=== PATIENT | male | born 1955 | race Caucasian/White ===

== ENCOUNTER 2019-03-22 19:34 | Emergency (ER) | payer BC, SELFPAY ==
[2019-03-22 19:38] VITALS: BP 145/90; PULSE 77; RESP 18; TEMP 36.8; O2SAT 98; BMI 23.1
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
[2019-03-22] MEDS: KETOROLAC 60 MG/2 ML VIAL IM (20:15)
[2019-03-22] MEDS: TET,DIPH,PERTUSS(ACELL),VAC/PF 0.5 ML SYRINGE IM (20:15)
[2019-03-22 21:52] VITALS: BP 118/77; PULSE 83; RESP 16; O2SAT 98
[2019-03-22] MEDS: HYDROCODONE/ACET 5/325 PREPACK 1 BOTTLE MISC (21:55)
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
== END 2019-03-22 21:58 | disposition home or self-care (01) ==
PROVIDERS: Emergency Provider Nurse Practitioner Family
DX: S43.005A Unspecified dislocation of left shoulder joint, initial encounter (principal); S40.212A Abrasion of left shoulder, initial encounter; V19.3XXA Pedal cyclist (driver) (passenger) injured in unspecified nontraffic accident, initial encounter; Y93.55 Activity, bike riding; Z23 Encounter for immunization
CPT/HCPCS: 73030; 90471; 96372; 99283; 90715; J1885

== ENCOUNTER 2019-04-02 20:02 | Emergency (ER) | payer BC, SELFPAY ==
[2019-04-02 20:05] VITALS: BP 152/92; PULSE 72; RESP 18; TEMP 36.8; O2SAT 98
--- NOTE | 2019-04-02 20:09 | DI.RAD.S_ITS ---
PROCEDURE: XR CHEST 1V INDICATIONS: CP TECHNIQUE: One view of the chest was acquired. COMPARISON: None. FINDINGS: Surgical changes and devices: None. Lungs and pleura: Lungs are clear. No pleural effusions or pneumothorax. Mediastinum: Mediastinal contours appear normal. Heart size is normal. Bones and chest wall: No suspicious bony lesions. Overlying soft tissues appear unremarkable. IMPRESSION: No acute process. Dictated by: Conchita Sabillon M.D. on 04/02/2019 at 20:31 Approved by: Conchita Sabillon M.D. on 04/02/2019 at 20:32
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
[2019-04-02] MEDS: ASPIRIN 81 MG TAB 324 MG PO (20:21)
[2019-04-02 20:33] LABS: Alanine Aminotransferase 63 IU/L (21-72); Albumin 4.6 g/dL (3.5-5.0); Albumin Globulin Ratio 1.5 (1.0-2.8); Alkaline Phosphatase 69 U/L (38-126); Aspartate Aminotransferase 62 IU/L (17-59); Blood Urea Nitrogen 25 mg/dL (9-20); Calcium 9.4 mg/dL (8.4-10.2); Carbon Dioxide 34 mmol/L (22-32); Chloride 100 mmol/L (98-107); Creatine Kinase 153 U/L (55-170); Estimated Glomerular Filt Rate > 60.0 mL/min (>60); Glucose 108 mg/dL (80-110); Lipase 254 U/L (23-300); Potassium 4.3 mmol/L (3.4-5.1); Sodium 141 mmol/L (137-145); Total Protein 7.6 g/dL (6.3-8.2)
[2019-04-02 20:45] LABS: Troponin I < 0.012 ng/mL (0.01-0.034)
[2019-04-02 20:49] LABS: CKMB % Relative Index 2.3 % (1.5-5.0); Creatine Kinase MB 3.48 ng/mL (<2.37); HEMOLYSIS 31 (0-50)
[2019-04-02 20:54] LABS: B Type Natriuretic Peptide < 100 (<100)
[2019-04-02 21:06] LABS: Hematocrit 43.9 % (41-53); Hemoglobin 15.5 g/dL (13.5-17.5); Mean Corpuscular HGB Conc 35.3 % (30-36); Mean Corpuscular Volume 87.7 fL (80-100); Platelet Count 234 X10^3/uL (150-400); Red Blood Cell Count 5.01 X10^6/uL (4.5-5.9); Red Cell Distribution Width 12.8 % (11.6-14.8); White Blood Cell Count 7.1 X10^3/uL (4.5-11.0)
[2019-04-02 21:07] LABS: Add Manual Diff / Slide Review NO; Basophils Absolute Auto 0 /uL (0-100); Basophils Percent Auto 0.5 % (0-2); Eosinophils Absolute Auto 100 /uL (0-450); Eosinophils Percent Auto 1.5 % (2-4); Lymphocytes Absolute Auto 2000 /uL (1100-4500); Lymphocytes Percent Auto 28.4 % (25-40); Monocytes Absolute Auto 700 /uL (0-900); Monocytes Percent Auto 9.8 % (3-14); Neutrophils Absolute Auto 4300 /uL (1500-7000); Neutrophils Percent Auto 59.8 % (50-75)
[2019-04-02 21:25] LABS: D Dimer 201 ng/mL (<230)
[2019-04-02 21:40] VITALS: BP 123/78; PULSE 67; RESP 16; O2SAT 97
--- NOTE | 2019-04-02 23:00 | ED_ITS ---
HPI - Chest Pain General Chief Complaint: Chest Pain Stated Complaint: CHEST, NECK, LT HAND PAIN Time Seen by Provider: 04/02/19 20:04 Source: patient Mode of arrival: ambulatory Limitations: no limitations History of Present Illness HPI narrative: 64-year-old male nonsmoker with history of hypertension and hyperlipidemia presents with a chief complaint various locations of pain past few days. He states that a few days ago he landed on his right side while riding his bike and has had some pain in his right thigh and knee, but is able to ambulate without much in the way of difficulty. The patient's pain moved from his thigh to his knee yesterday. Today he started having pain in his left foot and ankle and also had pain in his anterior chest as well, he also had pain behind his right eye. He denies any provocation or palliation of any of this pain. He denies any dizziness, weakness or lightheadedness. He denies any shortness of breath, cough, hemoptysis. He denies any worsening with exertion. He denies any diaphoresis, nausea or vomiting. He is not currently having symptoms. He is anxious and states his brother told him to get checkd out. MD complaint: chest pain Onset (ago): hour(s) Duration: constant and now resolved Onset: other Pain location: right chest Severity: mild Quality: aching Pain radiation: none Relieving factors: nothing Exacerbating factors: nothing Treatments prior to arrival chest pain: none Related Data Home Medications Medication Instructions Recorded Confirmed atorvastatin 40 mg PO DAILY 04/02/19 04/02/19 carvedilol 3.125 mg PO BID 04/02/19 04/02/19 diclofenac sodium 1 appful TOPICAL BID PRN 04/02/19 04/02/19 lisinopril 10 mg PO DAILY 04/02/19 04/02/19 ticagrelor [Brilinta] 90 mg PO BID 04/02/19 04/02/19 Allergies Allergy/AdvReac Type Severity Reaction Status Date / Time No Known Drug Allergies Allergy Verified 03/26/19 13:51 Review of Systems Constitutional Denies chills, Denies fever(s), Denies lethargy and Denies weakness Eyes Denies change in vision, Denies eye discharge, Denies irritation and Denies loss of vision ENT Ears, Nose, Mouth, and Throat: Denies change in voice, Denies neck pain and Denies sore throat Cardiovascular Reports chest pain, Denies irregular heart rhythm, Denies lightheadedness, Denies palpitations, Denies dyspnea, Denies dyspnea on exertion and Denies orth opnea Respiratory Denies cough, Denies dyspnea, Denies dyspnea on exertion and Denies wheezing Gastrointestinal Gastrointestinal: Denies abdominal pain, Denies change in bowel habits, Denies diarrhea, Denies nausea and Denies vomiting Genitourinary Denies hematuria, Denies flank pain, Denies urinary incontinence and Denies urinary urgency Musculoskeletal Reports muscle cramps and Denies neck pain Integumentary/Breasts Denies pruritus, Denies erythema, Denies rash and Denies wounds Neurologic Denies confusion, Denies loss of vision and Denies weakness Psychiatric Reports anxiety, Denies confusion, Denies depression, Denies homicidal ideation and Denies suicidal ideation Endocrine Denies palpitations Hematologic/Lymphatic Denies easy bruising Allergic/Immunologic Denies wheezing [facility] [place] Surgical History Stented coronary artery (Acute) Social History (System 03/26/19 @ 13:51 by Wendie Stevens) Smoking Status: Never smoker Social History Smoking Status: Never smoker Exam Narrative Exam Narrative: GENERAL: 64-year-old male appears younger than stated age, visibly anxious with pressured speech, not in obvious discomfort HEAD: Atraumatic. Normocephalic. No temporal or scalp tenderness. EYES: Pupils equal round and reactive. Extraocular motions intact. No scleral icterus. No injection or drainage. ENT: Nose without bleeding, purulent drainage or septal hematoma. Throat without erythema, tonsillar hypertrophy or exudate. Uvula midline. Airway patent. NECK: Trachea midline. No JVD or lymphadenopathy. Supple, nontender, no meningeal signs. CARDIOVASCULAR: Regular rate and rhythm without murmurs, gallops, or rubs. RESPIRATORY: Clear to auscultation. Breath sounds equal bilaterally. No wheezes, rales, or rhonchi. GASTROINTESTINAL: Abdomen soft, non-tender, nondistended. No hepato- splenomegaly, or palpable masses. No guarding. EXTREMITIES: No clubbing, cyanosis, or edema. No joint tenderness, effusion, or edema noted. BACK: Nontender without deformity or crepitance. No flank tenderness. NEURO: AOx3. SKIN: No rash or erythema. Initial Vital Signs Initial Vital Signs: Vital Signs Temperature 98.2 F 04/02/19 20:05 Pulse Rate 72 04/02/19 20:05 Respiratory Rate 18 04/02/19 20:05 Blood Pressure 152/92 H 04/02/19 20:05 Pulse Oximetry 98 04/02/19 20:05 Scores HEART Score Heart Score history: Slightly Suspicious Heart Score EKG: Normal Heart Score Age: 45-64 years old Heart Score risk factors: > 3 risk factors or hx of atherosclerotic disease Heart Score troponin: < or = to normal limit Heart Score Total: 3 Course Orders Ordered: ED Orders 04/02/19 20:09 XR chest 1V Stat EKG-12 Lead Stat 04/02/19 20:10 B Type Natriuretic Peptide Stat Complete Blood Count AUTO DIFF Stat Comprehensive Metabolic Panel Stat D Dimer Stat Lipase Stat Troponin & CK Cardiac Panel Stat 04/02/19 22:17 EKG-12 Lead Stat 04/02/19 22:30 Troponin I Stat Sodium Chloride (Normal Saline 0.9%) 1,000 mls @ 150 mls/hr IV CONT RONI Last Admin: 04/02/19 20:22 Dose: Not Given Discontinued Medications Aspirin (Aspirin Chew) 324 mg PO NOW ONE Stop: 04/02/19 20:10 Last Admin: 04/02/19 20:21 Dose: 324 mg Vital Signs - 8 hr 04/02/19 20:05 04/02/19 21:40 04/02/19 23:17 Temperature 98.2 F Pulse Rate 72 67 58 L Respiratory Rate 18 16 13 Blood Pressure 152/92 H Blood Pressure [Left Arm] 123/78 124/90 Pulse Oximetry 98 97 99 04/02/19 23:36 Temperature Pulse Rate 64 Respiratory Rate 16 Blood Pressure Blood Pressure [Left Arm] 119/71 Pulse Oximetry 99 MDM - Chest Pain Lab Data Result diagrams: 04/02/19 20:10 04/02/19 20:10 Lab Results 04/02/19 04/02/19 04/02/19 Range/Units 20:10 20:10 20:10 WBC 7.1 (4.5-11.0) X10^3/uL RBC 5.01 (4.5-5.9) X10^6/uL Hgb 15.5 (13.5-17.5) g/dL Hct 43.9 (41-53) % MCV 87.7 (80-100) fL MCH 31.0 (26-34) PG MCHC 35.3 (30-36) % RDW 12.8 (11.6-14.8) % Plt Count 234 (150-400) X10^3/uL Neut % (Auto) 59.8 (50-75) % Lymph % (Auto) 28.4 (25-40) % [place] % (Auto) 9.8 (3-14) % Eos % (Auto) 1.5 L (2-4) % Baso % (Auto) 0.5 (0-2) % Neut # (Auto) 4300 (4424-4539) /uL Lymph # (Auto) 2000 (2988-1989) /uL [place] # (Auto) 700 (0-900) /uL Eos # (Auto) 100 (0-450) /uL Baso # (Auto) 0 (0-100) /uL D-Dimer 201 (<230) ng/mL Sodium 141 (137-145) mmol/L Potassium 4.3 (3.4-5.1) mmol/L Chloride 100 (98-107) mmol/L Carbon Dioxide 34 H (22-32) mmol/L BUN 25 H (9-20) mg/dL Creatinine 1.00 (0.66-1.25) mg/dL Estimated GFR > 60.0 (>60) mL/min BUN/Creatinine Ratio 25.0 H (6-22) Glucose 108 (80-110) mg/dL Calcium 9.4 (8.4-10.2) mg/dL Total Bilirubin 1.0 (0.2-1.3) mg/dL AST 62 H (17-59) IU/L ALT 63 (21-72) IU/L Alkaline Phosphatase 69 (38-126) U/L Total Creatine Kinase 153 (55-170) U/L CK-MB (CK-2) 3.48 H (<2.37) ng/mL CK-MB (CK-2) Rel Index 2.3 (1.5-5.0) % Troponin I < 0.012 (0.01-0.034) ng/mL B-Natriuretic Peptide < 100 (<100) Total Protein 7.6 (6.3-8.2) g/dL Albumin 4.6 (3.5-5.0) g/dL Globulin 3.0 (1.7-4.1) g/dL Albumin/Globulin Ratio 1.5 (1.0-2.8) Lipase 254 (23-300) U/L 04/02/19 Range/Units 22:30 WBC (4.5-11.0) X10^3/uL RBC (4.5-5.9) X10^6/uL Hgb (13.5-17.5) g/dL Hct (41-53) % MCV (80-100) fL MCH (26-34) PG MCHC (30-36) % RDW (11.6-14.8) % Plt Count (150-400) X10^3/uL Neut % (Auto) (50-75) % Lymph % (Auto) (25-40) % [place] % (Auto) (3-14) % Eos % (Auto) (2-4) % Baso % (Auto) (0-2) % Neut # (Auto) (6033-1842) /uL Lymph # (Auto) (5518-6842) /uL [place] # (Auto) (0-900) /uL Eos # (Auto) (0-450) /uL Baso # (Auto) (0-100) /uL D-Dimer (<230) ng/mL Sodium (137-145) mmol/L Potassium (3.4-5.1) mmol/L Chloride (98-107) mmol/L Carbon Dioxide (22-32) mmol/L BUN (9-20) mg/dL Creatinine (0.66-1.25) mg/dL Estimated GFR (>60) mL/min BUN/Creatinine Ratio (6-22) Glucose (80-110) mg/dL Calcium (8.4-10.2) mg/dL Total Bilirubin (0.2-1.3) mg/dL AST (17-59) IU/L ALT (21-72) IU/L Alkaline Phosphatase (38-126) U/L Total Creatine Kinase (55-170) U/L CK-MB (CK-2) (<2.37) ng/mL CK-MB (CK-2) Rel Index (1.5-5.0) % Troponin I < 0.012 (0.01-0.034) ng/mL B-Natriuretic Peptide (<100) Total Protein (6.3-8.2) g/dL Albumin (3.5-5.0) g/dL Globulin (1.7-4.1) g/dL Albumin/Globulin Ratio (1.0-2.8) Lipase (23-300) U/L Urine Dip Bedside Urine Glucose Negative Bedside Urine Bilirubin - Negative Bedside Urine Ketone - Negative Urine Specific [place] 1.015 Bedside Urine Occult Blood +/- Bedside Urine pH 7.5 Bedside Urine Protein - Negative Bedside Urine Urobilinogen +/- 1mg Bedside Urine Nitrite - Negative Bedside Urine Leukocytes - Negative Esterase Imaging Data Chest x-ray: Radiologist's impression: [address] [address] XRay Report Signed Patient: Basil Holloway R#: [id number] : 5Acct:[id number] Age/Sex: 64 / MDate of Service: 04/02/19 Loc: ED Accession Number: [id number] Procedure: XR chest 1V Ordering Provider: Bandar Pack D.O. PROCEDURE: XR CHEST 1V INDICATIONS: CP TECHNIQUE: One view of the chest was acquired. COMPARISON: None. FINDINGS: Surgical changes and devices: None. Lungs and pleura: Lungs are clear. No pleural effusions or pneumothorax. Mediastinum: Mediastinal contours appear normal. Heart size is normal. Bones and chest wall: No suspicious bony lesions. Overlying soft tissues ap pear unremarkable. IMPRESSION: No acute process. Dictated by: Conchita Sabillon M.D. on 04/02/2019 at 20:31 Approved by: Conchita Sabillon M.D. on 04/02/2019 at 20:32 [facility] Narrative Medical decision making narrative: Multiple etiologies for patient's symptoms considered including: [Electrolyte abnormality versus cardiac ischemia versus pulmonary embolism versus other] Patient's symptoms improved or duration of stay with above-stated therapies. Findings and discharge diagnosis discussed with patient/family followed by verbalization of understanding Return precautions discussed with patient/family whom verbalize understanding. Discharge Plan Departure Patient Disposition: Home Clinical Impression: Atypical chest pain Instructions: DI for Atypical Chest Pain Activity Restrictions/Additional Instructions: *You have been diagnosed with [ chest pain] *What to do: *Continue to take medications as directed *Follow up with your primary care provider in 2-3 days, call for an appointment. Let them know you were seen in the Emergency Department and that we ask that you be seen in follow up *Return to ER if you should have any new, worsening or concerning symptoms Prescriptions: No Action atorvastatin 40 mg tablet 40 mg PO DAILY RF: 0 carvedilol 3.125 mg tablet 3.125 mg PO BID RF: 0 lisinopril 10 mg tablet 10 mg PO DAILY RF: 0 diclofenac sodium 1 % gel 1 appful topical BID PRN (Reason: Pain (Scale Score 4-6)) RF: 0 Brilinta 90 mg tablet 90 mg PO BID RF: 0
[2019-04-02 23:04] LABS: Troponin I < 0.012 ng/mL (0.01-0.034)
[2019-04-02 23:17] VITALS: BP 124/90; PULSE 58; RESP 13; O2SAT 99
[2019-04-02 23:36] VITALS: BP 119/71; PULSE 64; RESP 16; O2SAT 99
== END 2019-04-02 23:55 | disposition home or self-care (01) ==
PROVIDERS: Emergency Provider Emergency Medicine
DX: R07.89 Other chest pain (principal)
CPT/HCPCS: 36415; 36591; 71045; 80053; 81003; 82550; 82553; 83690; 83880; 84484; 85025; 85379; 93005; 93010; 99283; 99285

== ENCOUNTER → 2023-02-23 07:35 | Outpatient (CLI) | payer MEDICARE, SELFPAY ==
[2023-02-23 08:26] LABS: Alanine Aminotransferase 41 IU/L (<50); Albumin 4.3 g/dL (3.5-5.0); Albumin Globulin Ratio 1.7 (1.0-2.8); Alkaline Phosphatase 69 U/L (38-126); Aspartate Aminotransferase 38 IU/L (17-59); BUN Creatinine Ratio 13.6 (6-22); Bilirubin Total 0.9 mg/dL (0.2-1.3); Blood Urea Nitrogen 14 mg/dL (9-20); Calcium 8.8 mg/dL (8.4-10.2); Carbon Dioxide 32 mmol/L (22-32); Chloride 100 mmol/L (98-107); Cholesterol 143 mg/dL (140-199); Estimated Glomerular Filt Rate > 60 mL/min (>60); Globulin 2.5 g/dL (1.7-4.1); Glucose 105 mg/dL (80-110); HDL Cholesterol 48 mg/dL (40-60); HEMOLYSIS < 15 (0-50); LDL Cholesterol Calculated 79 mg/dL (<100); Potassium 4.2 mmol/L (3.4-5.1); Sodium 137 mmol/L (137-145); Total Protein 6.8 g/dL (6.3-8.2); Triglycerides 80 mg/dL (35-150)
[2023-02-23 08:37] LABS: LDL Cholesterol Direct 67 mg/dL (<100)
== END ==
PROVIDERS: PCP Family Medicine; Referring Provider Student in an Organized Health Care Education/Training Program; Visit Provider Student in an Organized Health Care Education/Training Program
DX: E78.5 Hyperlipidemia, unspecified (principal)
CPT/HCPCS: 36415; 80053; 80061; 83721